=== PATIENT | male | born 1955 | race Caucasian/White ===

== ENCOUNTER 2019-10-15 09:41 | Inpatient (IN) ==
[~2019-10-15 09:41] MED LIST: Vancomycin 1,000 MG, Sodium Chloride IRRigation 1,000 ML IR ONE
[2019-10-15] MEDS ORDERED: Albuterol 2.5 MG/3 ML NEBULIZER IH PRN (10:03)
[2019-10-15] MEDS ORDERED: CeFAZolin Syr 2,000MG/20 ML 2,000 MG/20 ML SYRINGE IVPB ONE (10:03)
[2019-10-15] MEDS ORDERED: *HR* FentaNYL (PF) 100 MCG/2 ML VIAL IVP PRN (10:12)
[2019-10-15] MEDS ORDERED: Ondansetron 4 MG/2 ML VIAL IVP ONE (10:12)
[2019-10-15] MEDS ORDERED: *HR* OxyCODONE Immed Rel 5 MG TABLET PO PRN ×2 (10:12→16:40)
[2019-10-15] MEDS ORDERED: Acetaminophen IV 1,000 MG/100 ML INFUS..BTL IVPB ONE (10:12)
[2019-10-15] MEDS ORDERED: Ringers Solution, Lactated 1,000 ML IVC SCH ×2 (10:15)
[2019-10-15] MEDS ORDERED: Bupivacaine-MPF 0.25% 10 ML VIAL ONE ×2 (10:28→15:19)
[2019-10-15] MEDS ORDERED: Isovue-300 150 ML INFUS..BTL ONE (10:29)
[2019-10-15] MEDS ORDERED: Heparin 1,000 UNITS/500 mL 1,500 ML ONE (10:29)
[2019-10-15] MEDS ORDERED: *HR* Midazolam HCl 2 MG/2 ML VIAL ONE (10:49)
[2019-10-15] MEDS ORDERED: Dexamethasone 4 MG/ML VIAL ONE (10:49)
[2019-10-15] MEDS ORDERED: Lidocaine -MPF 2% 2 ML VIAL ONE (10:49)
[2019-10-15] MEDS ORDERED: Lidocaine HCL 4 ML Topical Solution (Laryng-O-Jet Kit Sterile Pak) TP ONE (10:49)
[2019-10-15] MEDS ORDERED: Ondansetron 4 MG/2 ML VIAL ONE (10:49)
[2019-10-15] MEDS ORDERED: *HR* Propofol 200 MG/20 ML VIAL IVP ONE (10:49)
[2019-10-15] MEDS ORDERED: *HR* Rocuronium Bromide 50 MG/5 ML VIAL ONE (10:49)
[2019-10-15] MEDS ORDERED: Neostigmine Methylsulfate 3 MG/3 ML SYRINGE ONE (10:49)
[2019-10-15] MEDS ORDERED: *HR* FentaNYL (PF) 100 MCG/2 ML VIAL ONE (10:49)
[2019-10-15] MEDS ORDERED: Heparin 1,000 UNITS/500 mL 500 ML ONE (10:54)
[2019-10-15] MEDS ORDERED: EPHEDrine 50 MG/ML VIAL ONE (11:54)
[2019-10-15] MEDS ORDERED: *HR* Heparin 5,000 UNIT/ML VIAL ONE (12:27)
[2019-10-15] MEDS ORDERED: Heparin 1,000 UNITS/500 mL 0 ML ONE (14:05)
[2019-10-15] MEDS ORDERED: Heparin 1,000 UNITS/500 mL 1,000 ML ONE (14:46)
[2019-10-15] MEDS ORDERED: *HR* HYDROMORPHONE 2 MG/ML VIAL ONE (15:08)
[2019-10-15] MEDS ORDERED: Naloxone 0.4 MG/ML INJ IVP PRN (16:40)
[2019-10-15] MEDS ORDERED: 0.9 % Sodium Chloride 1,000 ML IVC SCH (16:40)
[2019-10-15] MEDS ORDERED: *HR* HYDROcodone/Acet 5/325 mg TABLET PO PRN (16:40)
[2019-10-15] MEDS ORDERED: Ondansetron 4 MG/2 ML VIAL IVP PRN (16:40)
[2019-10-15] MEDS ORDERED: Acetaminophen 325 MG TABLET PO PRN (16:40)
[2019-10-15] MEDS ORDERED: *HR* Labetalol 20 MG/4 ML SYRINGE IVP PRN (16:40)
[2019-10-15] MEDS: *HR* Metoprolol 5 MG/5 ML VIAL IVP SCH ×2 (18:09→18:21)
[2019-10-15] MEDS: ceFAZolin 2,000 MG in 0.9 % Sodium Chloride 100 ML IVPB SCH (22:15)
[2019-10-16] MEDS: *HR* Metoprolol 5 MG/5 ML VIAL IVP SCH ×2 (01:40→05:34)
[2019-10-16 02:00] LABS: Basophils % 0.3 %; Immature Granulocytes % 0.4 % (0-4); Lymphocytes # 0.8 K/mcL (0.6-4.6); Lymphocytes % 7.1 %; Mean Corpuscular HGB Conc 33.3 g/dL (31.6-35.5); Mean Corpuscular Hemoglobin 30.5 pg (28.0-33.3); Mean Corpuscular Volume 91.5 fL (83.0-100.0); Mean Platelet Volume 9.1 fL (9.4-12.4); Monocytes # 0.8 K/mcL (0.0-1.3); Neutrophils # 10.1 K/mcL (1.6-8.9); Platelet Count 245 K/mcL (140-400); Red Blood Count 4.26 M/mcL (4.19-5.50); Red Cell Distribution Width 13.1 % (11.5-14.5); Segmented Neutrophils % 85.2 %
[2019-10-16 02:05] LABS: White Blood Count 11.8 K/mcL (4.3-11.1)
[2019-10-16 02:18] LABS: BUN/Creatinine Ratio 15 (6-26); Blood Urea Nitrogen 12 mg/dL (8-23); Calcium 9.3 mg/dL (8.6-10.3); Carbon Dioxide 23 mEq/L (23-29); Chloride 106 mEq/L (98-107); Glucose 110 mg/dL (70-105); Osmolality,Calculated 282 (280-300); Potassium 3.7 mEq/L (3.5-5.1); Sodium 136 mEq/L (136-145); eGFR For African Americans > 60 (> 60); eGFR For Non-African Americans > 60 (> 60)
[2019-10-16] MEDS: ceFAZolin 2,000 MG in 0.9 % Sodium Chloride 100 ML IVPB SCH (03:37)
[2019-10-16] MEDS ORDERED: *HR* Heparin 5,000 UNIT/ML VIAL SQ SCH (06:00)
[2019-10-16 07:53] VITALS: BP 97/61
[2019-10-16] MEDS ORDERED: FLU Vac QV 19-20 (6Month+)/PF 0.5 ML SYRINGE IM ONE (08:56)
[2019-10-16] MEDS ORDERED: Aspirin 81 MG TAB.CHEW PO SCH (09:00)
[2019-10-16] MEDS ORDERED: Nicotine 21 MG PATCH.TD24 TD SCH (09:00)
== END 2019-10-16 10:10 | disposition home or self-care (01) | DRG 269 ==
LOC: SAMDAY 09:41 → 2NNU 16:39
PROVIDERS: ADMIT Surgery; ATTEND Surgery

== ENCOUNTER 2020-04-14 08:32 | Observation (INO) ==
[2020-04-14] MEDS ORDERED: 0.9 % Sodium Chloride 1,000 ML IVC ONE ×2 (08:41→10:10)
[2020-04-14] MEDS ORDERED: Isovue-370 500 ML BOTTLE IVP ONE (08:51)
[2020-04-14 09:14] LABS: Basophils % 0.4 %; Eosinophils # 0.1 K/mcL (0.0-0.6); Eosinophils % 0.4 %; Hemoglobin 14.8 g/dL (12.9-16.9); Immature Granulocytes % 0.1 % (0-4); Lymphocytes # 0.7 K/mcL (0.6-4.6); Lymphocytes % 6.1 %; Mean Corpuscular HGB Conc 32.2 g/dL (31.6-35.5); Mean Corpuscular Hemoglobin 28.8 pg (28.0-33.3); Mean Corpuscular Volume 89.5 fL (83.0-100.0); Mean Platelet Volume 8.9 fL (9.4-12.4); Monocytes # 0.2 K/mcL (0.0-1.3); Monocytes % 1.4 %; Neutrophils # 10.3 K/mcL (1.6-8.9); Platelet Count 274 K/mcL (140-400); Red Blood Count 5.14 M/mcL (4.19-5.50); Red Cell Distribution Width 13.1 % (11.5-14.5); Segmented Neutrophils % 91.6 %; White Blood Count 11.2 K/mcL (4.3-11.1)
[2020-04-14] MEDS ORDERED: Ibuprofen 600 MG TABLET PO ONE (09:15)
[2020-04-14 09:26] LABS: Bilirubin,Urine Negative (Negative); Blood,Urine Trace (Negative); Clarity,Urine Clear (Clear); Color,Urine Light-Yellow (Yellow); Glucose,Urine (UA) Normal (Normal); Hyaline Casts,Urine Few per lpf (None Seen); Ketones,Urine Negative (Negative); Leukocyte Esterase,Urine Large (Negative); Mucus,Urine Few per lpf (None-Few); Nitrite,Urine Negative (Negative); Protein,Urine Negative (Neg-Trace); RBC,Urine 0-3 per hpf (0-3); Specific Gravity,Urine 1.012 (1.010-1.025); Urobilinogen,Urine Normal (Normal); WBC,Urine 50-100 per hpf (0-3)
[2020-04-14 09:42] LABS: Alanine Aminotransferase 11 Units/L (7-52); Albumin 4.5 g/dL (3.5-5.7); Albumin/Globulin Ratio 1.8 (1.1-2.2); Alkaline Phosphatase 111 Units/L (34-104); Aspartate Amino Transferase 15 Units/L (13-39); BUN/Creatinine Ratio 17 (6-26); Bilirubin,Direct 0.1 mg/dL (0.0-0.2); Bilirubin,Indirect 0.7 mg/dL (0.0-1.0); Bilirubin,Total 0.8 mg/dL (0.3-1.0); Blood Urea Nitrogen 17 mg/dL (8-23); Calcium 10.4 mg/dL (8.6-10.3); Carbon Dioxide 23 mEq/L (23-29); Chloride 104 mEq/L (98-107); Globulin 2.5 g/dL (2.4-3.5); Glucose 105 mg/dL (70-105); Magnesium 1.9 mg/dL (1.6-2.6); Osmolality,Calculated 286 (280-300); Phosphorous 4.1 mg/dL (2.7-4.5); Potassium 3.8 mEq/L (3.5-5.1); Sodium 137 mEq/L (136-145); Troponin I < 0.03 ng/mL (< 0.04); eGFR For African Americans > 60 (> 60); eGFR For Non-African Americans > 60 (> 60)
[2020-04-14 10:05] LABS: Adenovirus Not Detected (Not Detect); Bordetella Pertussis Not Detected (Not Detect); Chlamydophila pneumoniae Not Detected (Not Detect); Coronavirus 229E Not Detected (Not Detect); Coronavirus HKU1 Not Detected (Not Detect); Coronavirus NL63 Not Detected (Not Detect); Coronavirus OC43 Not Detected (Not Detect); Human Metapneumovirus Not Detected (Not Detect); Human Rhinovirus/Enterovirus Not Detected (Not Detect); Influenza A Subtype 2009 H1 Not Detected (Not Detect); Influenza B Not Detected (Not Detect); Mycoplasma pneumoniae Not Detected (Not Detect); Parainfluenza Virus 1 Not Detected (Not Detect); Parainfluenza Virus 2 Not Detected (Not Detect); Parainfluenza Virus 3 Not Detected (Not Detect); Parainfluenza Virus 4 Not Detected (Not Detect); Respiratory Syncytial Virus Not Detected (Not Detect)
[2020-04-14] MEDS ORDERED: cefTRIAXone 1,000 MG in Water for inj. (sterile) 10 ML IVP ONE (10:05)
[2020-04-14] MEDS ORDERED: Ondansetron 4 MG/2 ML VIAL IVP PRN (10:48)
[2020-04-14 11:45] LABS: Vitamin B12 174 pg/mL (250-1100)
[2020-04-14] MEDS ORDERED: Ringers Solution, Lactated 1,000 ML IVC ONE (13:39)
[2020-04-14] MEDS: Cyanocobalamin (B-12) 1,000 MCG TABLET PO SCH (14:57)
[2020-04-14 23:27] LABS: Vitamin D 25 Hydroxy 33 ng/mL (30-80)
[2020-04-15] MEDS: Nicotine 14 MG PATCH.TD24 TD SCH ×2 (01:00→08:52)
[2020-04-15] MEDS: Acetaminophen 325 MG TABLET PO PRN ×2 (03:54→15:29)
[2020-04-15 06:54] LABS: Hematocrit 39.9 % (37.5-50.1); Mean Corpuscular HGB Conc 32.3 g/dL (31.6-35.5); Mean Corpuscular Volume 92.8 fL (83.0-100.0); Mean Platelet Volume 8.9 fL (9.4-12.4); Platelet Count 227 K/mcL (140-400); Red Cell Distribution Width 13.3 % (11.5-14.5); White Blood Count 9.8 K/mcL (4.3-11.1)
[2020-04-15 07:00] LABS: Hemoglobin 12.9 g/dL (12.9-16.9)
[2020-04-15 07:01] LABS: BUN/Creatinine Ratio 12 (6-26); Blood Urea Nitrogen 12 mg/dL (8-23); Calcium 9.7 mg/dL (8.6-10.3); Carbon Dioxide 26 mEq/L (23-29); Chloride 105 mEq/L (98-107); Glucose 99 mg/dL (70-105); Osmolality,Calculated 282 (280-300); Potassium 3.6 mEq/L (3.5-5.1); Sodium 136 mEq/L (136-145); eGFR For African Americans > 60 (> 60); eGFR For Non-African Americans > 60 (> 60)
[2020-04-15] MEDS ORDERED: Ringers Solution, Lactated 1,000 ML IVC SCH (08:00)
[2020-04-15] MEDS: cefTRIAXone 1,000 MG in Water for inj. (sterile) 10 ML IVP SCH (08:51)
[2020-04-15] MEDS: Cyanocobalamin (B-12) 1,000 MCG TABLET PO SCH (08:51)
[2020-04-16] MEDS: Nicotine 14 MG PATCH.TD24 TD SCH (09:27)
[2020-04-16] MEDS: Cyanocobalamin (B-12) 1,000 MCG TABLET PO SCH (09:27)
[2020-04-16] MEDS: cefTRIAXone 1,000 MG in Water for inj. (sterile) 10 ML IVP SCH (09:27)
[2020-04-16 10:17] VITALS: BP 102/54
== END 2020-04-16 14:30 | disposition home or self-care (01) ==
LOC: EMEROOARM 08:32 → CDU 08:32 → SUATTDRO 11:35 → CDU 12:31 → 3ANU 15:38
PROVIDERS: ADMIT Internal Medicine; ATTEND Internal Medicine